=== PATIENT | female | born 1985 | race Asian ===

== ENCOUNTER 2018-08-06 10:18 | Inpatient (IN) | payer BC ==
[2018-08-06] MEDS ORDERED: Promethazine HCl 25 MG/ML VIAL IM PRN ×2 (10:42→14:18)
[2018-08-06] MEDS ORDERED: Ondansetron PF 4 MG/2 ML Vial IVP PRN (10:42)
[2018-08-06] MEDS: Lactated Ringer's 1,000 ML IV SCH ×2 (10:42→13:44)
[2018-08-06 10:45] VITALS: BMI 22.8
[2018-08-06] MEDS ORDERED: Bicitra 30 ML UDCUP PO SCH (10:45)
[2018-08-06 11:06] LABS: Hemoglobin 12.8 g/dL (12.0-16.0); Mean Corpuscular HGB CONC 33.6 g/dL (32.0-36.0); Mean Corpuscular Hemoglobin 34.4 pg (27.0-31.0); Mean Platelet Volume 10.2 fL (7.4-10.4); Platelet Count 141 thou/uL (130-400); RBC Distribution Width 12.3 % (11.5-14.5); Red Blood Cell (RBC) Count 3.73 mill/uL (4.20-5.40); White Blood Cell (WBC) Count 6.9 thou/uL (4.8-10.8)
[2018-08-06] MEDS ORDERED: CEFAZOLIN 2 GM/50 ML BAG IVPB SCH (11:15)
[2018-08-06 11:45] LABS: Syphilis Antibody Nonreactive (Nonreactive); Syphilis Antibody Index 0.02 S/CO (<1.00 Non-Reactive)
[2018-08-06 12:08] LABS: HBSAg Index 0.23 S/CO (0-0.99); Hep B Surf Ag Non-Reactive S/CO (NonReactive)
[2018-08-06] MEDS ORDERED: Ondansetron PF 4 MG/2 ML Vial ONE ×3 (13:12→15:44)
[2018-08-06] MEDS ORDERED: Ketorolac Tromethamine 30 MG/ML VIAL ONE ×2 (13:12→13:51)
[2018-08-06] MEDS ORDERED: ePHEDrine 50 MG/ML VIAL ONE (13:12)
[2018-08-06] MEDS ORDERED: Terbutaline Sulfate 1 MG/ML VIAL ONE (13:34)
[2018-08-06] MEDS ORDERED: Oxytocin 10 UNITS/ML VIAL ONE ×2 (13:51→14:55)
[2018-08-06] MEDS ORDERED: Fentanyl 100 MCG/2 ML VIAL ONE (13:51)
[2018-08-06] MEDS ORDERED: MORPHINE 5 MG/10 ML PF VIAL ONE (13:51)
[2018-08-06] MEDS ORDERED: L&D-Morphine 4 MG/ML VIAL SLOW IVP PRN (14:18)
[2018-08-06] MEDS ORDERED: diphenhydrAMINE 50 MG/ML VIAL IVP PRN (14:18)
[2018-08-06] MEDS ORDERED: Meperidine HCl/PF 25 MG/ML VIAL SLOW IVP PRN (14:18)
[2018-08-06] MEDS ORDERED: Naloxone HCl 0.4 mg/ml Vial IVP PRN ×2 (14:18)
[2018-08-06] MEDS ORDERED: HYDROmorphone 2 MG/ML VIAL SLOW IVP PRN (14:18)
[2018-08-06] MEDS ORDERED: Promethazine HCl 25 MG SUPP PR PRN (14:18)
[2018-08-06] MEDS ORDERED: Ondansetron HCl/PF 4 MG/2 ML Vial IVP PRN (14:18)
[2018-08-06] MEDS ORDERED: Eucerin (Mineral Oil/Petrolatum,White) 30 gm Jar TOP PRN (14:18)
[2018-08-06] MEDS ORDERED: Naloxone HCl 0.4 mg/ml Vial IV PRN (14:18)
[2018-08-06] MEDS ORDERED: Ketorolac Tromethamine 30 MG/ML VIAL IVP SCH (14:30)
[2018-08-06] MEDS ORDERED: Communication Order-Pharmacy FS SCH (14:30)
[2018-08-06] MEDS ORDERED: PHENYLEPHRINE-NS 100 MCG/ML 10 ML SYRINGE ONE (14:33)
[2018-08-06] MEDS ORDERED: ePHEDrine/0.9% NaCl/PF SYRINGE 50 mg/10 ml ONE (14:37)
[2018-08-06] MEDS ORDERED: NS / Oxytocin 40 units/1000ml 1,000 ML ONE (16:43)
[2018-08-06] MEDS: Ondansetron PF 4 MG/2 ML Vial IVP PRN (19:23)
--- NOTE | 2018-08-06 21:31 | OP ---
DATE OF PROCEDURE: 08/06/2018 RESIDENT SURGEON: Bandar Dai MD PREOPERATIVE DIAGNOSES: 1. Twin gestation at 36 and 0/7 weeks. 2. Asymmetric growth. 3. Oligohydramnios. 4. Declines trial of labor. POSTOPERATIVE DIAGNOSES: 1. Twin gestation at 36 and 0/7 weeks. 2. Asymmetric growth. 3. Oligohydramnios. 4. Declines trial of labor. PROCEDURE PERFORMED: Primary low-transverse section. ANESTHESIA: Spinal catheterization. FINDINGS: 1. Diamnionic dichorionic twin gestation. 2. Asymmetric growth; 19% discordant. 3. Oligohydramnios twin B. 4. Grade 3 placenta twin B. 5. IUGR twin B. 6. Twin A, vigorous male infant, 5 pounds and 2 ounces, Apgars 8 and 9; twin B, 4 pounds and 5 ounces, Apgars of 8 and 9. 7. Normal uterus, tubes, and ovaries. COMPLICATIONS: None. SPECIMENS REMOVED: 1. Cord blood. 2. Placenta to pathology secondary to the above noted findings. ESTIMATED BLOOD LOSS: Approximately 500 mL (QBL 531 mL). HISTORY AND INDICATIONS: Ms. Gwendolyn Adair is a very pleasant 33-year-old female G1, P0 who has followed in my clinic for obstetric care. Her is complicated by IVF consumption and twin gestation. The patient was noted to have a diamnionic dichorionic twin gestation with progressive asymmetric growth. We started testing at 33 weeks with weekly ultrasound, NST, and twice daily kick counts. Gwendolyn presented this morning for routine visit and twin B showed no growth with IUGR. In addition, the placenta was grade 3 and GERALDO was less than 5. Biophysically, the babies look fine. Estimated weight showed asymmetric discordant growth at 19%. A decision was made to proceed with delivery. The patient declines trial of labor throughout the twin . She was sent to labor and delivery this morning for scheduled section this afternoon. Shortly after the noon hour, twin B had a 7-minute deceleration and we proceeded with delivery. DESCRIPTION OF PROCEDURE: After thorough consent and counseling, Ms. Gwendolyn Adair was taken to the operating room and an adequate level of anesthesia was obtained via spinal catheterization. The patient was prepped and draped in the usual sterile fashion for abdominal surgery. A Nunez was placed in the bladder, which was noted to be draining clear urine. Attention was then turned to performing the primary low-transverse section. A Pfannenstiel incision was made and carried sharply to the fascia, which was also sharply incised. Midline was identified, and the rectus muscles were retracted laterally. The abdominal peritoneal cavity was entered with the usual safeguards carried out. A retractor was placed and a bladder flap was created on the vesicouterine peritoneum. A bladder blade was placed. A low transverse incision was made on the well developed lower uterine segment. Upon entering the amniotic sac of twin A, a copious amount of clear amniotic fluid was visualized. The infant was noted to be back down oblique Y. The vertex was carefully directed into the incision and baby was bulb suctioned on the abdomen. Shoulders and body were then delivered in an atraumatic fashion. The cord was doubly clamped and cut. The was handed to the Neonatology Team in attendance for the delivery. Dr. Bae was attending gas welder. Amniotomy was performed on twin B and there was a scant amount of clear fluid visualized. Twin B was in vertex presentation in the occiput anterior position high in the pelvis. Head was carefully delivered and nuchal chord x1 was reduced. Shoulders and body were also delivered in an atraumatic fashion. The umbilical cord of twin B was doubly clamped and cut and the infant was handed to the second team in attendance for the delivery. Twin A was a vigorous viable male weighing 5 pounds and 2 ounces with Apgars of 8 and 9 obtained at one and five minutes respectively. Twin B was a vigorous viable female weighing 4 pounds and 5 ounces with Apgars of 8 and 9 obtained at one and five minutes respectively. Cord blood was obtained from both umbilical cords. The placenta was manually removed from the uterus. The uterus was exteriorized, and good tone was noted. The placenta will be sent to pathology for evaluation. Findings of the placenta as noted above. Twin A owned approximately 65% of the placenta with twin B owning approximately 35%. There were significant calcifications in the placenta of B. The uterine cavity was cleared off clot and fluid. The low-transverse incision was closed with a running locking ligature of #1 chromic. A second imbricating layer was placed to facilitate strength and hemostasis. Several [id number] ligatures of #1 chromic were placed to facilitate hemostasis as well. The bladder flap was reapproximated to the lower segment with running ligature of 3-0 Monocryl. Good hemostasis was noted. The posterior cul-de-sac and gutters were cleared off clot and fluid. The incision was noted to be hemostatic. Seprafilm was applied to the low transverse incision and the anterior aspect of the uterus for adhesion prevention. The uterus was returned to the abdomen. Again, the incision was carefully inspected and noted to be hemostatic. Lap, sponge, and needle counts were correct. The peritoneum was closed with a running ligature of 2-0 Vicryl suture. The rectus muscles were reapproximated in the midline with interrupted ligatures of 2-0 Vicryl and with #1 chromic suture. The fascia was closed with 2 ligatures of 0 Vicryl suture tied in the midline. The incision was irrigated with copious amount of warm normal saline. Hemostasis was obtained with Bovie cauterization. The subcutaneous tissue was closed with interrupted ligatures of 2-0 plain. The skin was closed with a subcuticular stitch of 4-0 Monocryl and dressed with Dermabond. A pressure dressing and ice packs were subsequently placed. Lap, sponge, and needle counts were correct x3. Estimated blood loss during the surgical procedure was approximately 500 mL (QBL was 531 mL.) The patient was taken to the recovery room in good condition. Immediately following the surgery, the patient and family were made aware of the surgical procedure and operative findings. Babies were doing well in the nursery. Questions were answered to the patient and family's satisfaction. Job ID: [id number]
[2018-08-07] MEDS: Ketorolac Tromethamine 30 MG/ML VIAL IVP PRN ×2 (03:58→10:45)
[2018-08-07] MEDS: Lactated Ringer's 1,000 ML IV SCH (08:02)
[2018-08-07] MEDS ORDERED: HYDROcodone/Acetaminophen 5/325 mg Tablet PO PRN (10:02)
[2018-08-07] MEDS ORDERED: Zolpidem Tartrate 5 MG TAB PO PRN (10:02)
[2018-08-07] MEDS ORDERED: Adacel (T-DAP) 0.5 ML SYRINGE IM ONE (10:02)
[2018-08-07] MEDS ORDERED: Lactated Ringer's 1,000 ML IV SCH (10:15)
[2018-08-07] MEDS ORDERED: NS / Oxytocin 40 units/1000ml 1,000 ML IV SCH (10:15)
[2018-08-07] MEDS ORDERED: Sodium Chloride 0.9% 20 ML ONE (10:41)
[2018-08-07] MEDS: Ondansetron PF 4 MG/2 ML Vial IVP PRN (10:50)
[2018-08-07] MEDS: Simethicone Chewable 80 MG TAB PO PRN ×3 (10:50→22:22)
[2018-08-07] MEDS: Ibuprofen 800 MG TAB PO SCH (16:59)
[2018-08-07] MEDS: Docusate Calcium (SURFAK) 240 MG CAP PO SCH (22:23)
[2018-08-07] MEDS: HYDROcodone/Acetaminophen 5/325 mg Tablet PO PRN (23:41)
[2018-08-08] MEDS: Ibuprofen 800 MG TAB PO SCH ×3 (05:28→21:17)
[2018-08-08] MEDS: HYDROcodone/Acetaminophen 5/325 mg Tablet PO PRN ×3 (05:29→15:13)
[2018-08-08] MEDS: Simethicone Chewable 80 MG TAB PO PRN (08:29)
[2018-08-08] MEDS: Lanolin Ointment 7 GM TUBE TOP PRN (08:29)
[2018-08-08] MEDS: Docusate Calcium (SURFAK) 240 MG CAP PO SCH ×2 (08:29→21:17)
[2018-08-08] MEDS: Prenatal Vitamin 1 TAB PO SCH (08:29)
[2018-08-09] MEDS: Ibuprofen 800 MG TAB PO SCH ×3 (06:20→16:27)
[2018-08-09] MEDS: HYDROcodone/Acetaminophen 5/325 mg Tablet PO PRN (06:21)
[2018-08-09] MEDS: Docusate Calcium (SURFAK) 240 MG CAP PO SCH ×2 (09:33→21:52)
[2018-08-09] MEDS: Prenatal Vitamin 1 TAB PO SCH (09:33)
[2018-08-09] MEDS: Lanolin Ointment 7 GM TUBE TOP PRN (19:24)
[2018-08-10] MEDS: Ibuprofen 800 MG TAB PO SCH ×2 (05:37→15:40)
[2018-08-10 08:16] VITALS: BP 107/63; TEMP 98.1
[2018-08-10] MEDS: Docusate Calcium (SURFAK) 240 MG CAP PO SCH (09:40)
[2018-08-10] MEDS: Prenatal Vitamin 1 TAB PO SCH (09:40)
== END 2018-08-10 16:05 | disposition home or self-care (01) | DRG 787 ==
LOC: L&D 10:18 → 3SW 18:04
PROVIDERS: ADMIT Obstetrics & Gynecology; ATTEND Obstetrics & Gynecology
PROC: 10D00Z1 Extraction of Products of Conception, Low, Open Approach (ICD-10-PCS; principal; 2018-08-06)
DX: O30.043 Twin pregnancy, dichorionic/diamniotic, third trimester (principal); O41.03X2 Oligohydramnios, third trimester, fetus 2; O36.5932 Maternal care for other known or suspected poor fetal growth, third trimester, fetus 2; Z3A.36 36 weeks gestation of pregnancy; Z37.2 Twins, both liveborn; O43.893 Other placental disorders, third trimester; O76 Abnormality in fetal heart rate and rhythm complicating labor and delivery; O69.81X2 Labor and delivery complicated by cord around neck, without compression, fetus 2
CPT/HCPCS: 36415; 51702; 85027; 86780; 86850; 86900; 86901; 87340; 88307; J1885; J2270; J2405; J2590; J3010; J3105; J3490